=== PATIENT | male | born 1965 | race Caucasian/White ===

== ENCOUNTER 2021-09-03 13:32 | Emergency (ER) | payer BC, SELFPAY ==
[2021-09-03 13:33] VITALS: BP 136/77; PULSE 108; RESP 18; TEMP 36.6; O2SAT 99; BMI 22.4
--- NOTE | 2021-09-03 13:50 | EDS_ITS ---
HPI History of Present Illness Chief Complaint: Lower Extremity Injury Informant: patient Narrative Narrative: 55-year-old male states that last he he woke with a discomfort in his left hamstring like he had strained it. Later he developed pain like a charley horse in his calf and developed leg swelling. This is persisted through the weekend. He notes that he just returned home from [place] about 3 weeks ago. No history of DVT or PE. No known trauma. PFSH PFSH Home Medications Multivitamin 1 tab PO DAILY 12/06/15 [History Last Taken 12/06/15] omega 3-dha 60 mg-epa 90 mg-fish oil 500 mg capsule, delayed release (Fish Oil) 500 mg PO DAILY 12/06/15 [History Last Taken 12/06/15] Allergy/AdvReac Type Severity Reaction Status Date / Time No Known Allergies Allergy Verified 12/06/15 12:07 Social History (Updated 09/03/21 @ 13:[address] Dani Medley, DO) Smoking Status: Current every day smoker tobacco type: pipe substance use type: does not use ROS ROS ED Constitutional Constitutional ED: Denies chills or weight loss Eyes Eyes: Denies change in vision or diplopia ENT ENT ED: Denies ear pain, rhinorrhea or sore throat Cardiovascular Cardiovascular: Denies chest pain, orthopnea, palpitations or racing heartbeat Respiratory/Chest Respiratory/Chest: Denies cough, dyspnea or orthopnea Gastrointestinal Gastrointestinal: Denies abdominal pain, diarrhea, nausea or vomiting Genitourinary Genitourinary ED: Denies dysuria, hematuria or urinary frequency Musculoskeletal Musculoskeletal: Reports other; Denies arthralgias or myalgias Integumentary Denies abscess or rash Neurologic Neurologic: Denies headache(s) or weakness Psychiatric Psychiatric: Denies anxiety, depression, suicidal ideation or suicidal thoughts Endocrine Endocrinology: Denies polydipsia, polyphagia or polyuria Allergic/Immunologic Allergic/Immunologic ED: Denies mouth swelling, tongue swelling or urticaria EXAM Physical Exam Const Vital Signs: 09/03/21 13:33 Temperature 97.8 F Temperature Source Temporal Pulse Rate 108 H Respiratory Rate 18 Blood Pressure 136/77 H Blood Pressure Mean 96 Pulse Ox 99 Oxygen Delivery Method Room Air Positive well nourished and well developed General Appearance ED: well developed HEENT Reports normocephalic, head/scalp atraumatic and moist mucous membranes Eyes PERRL and EOMs intact bilaterally Neck no lymphadenopathy, supple and no JVD Resp normal respiratory effort and clear to auscultation bilaterally Cardio regular rate, regular rhythm and no murmurs GI normal to inspection, nondistended, normoactive bowel sounds and non-tender Palpation: soft Back/Spine no CVA tenderness and normal ROM Extremity Extremity Narrative: There is mild swelling of the left leg. Tenderness to palpation of the calf. There is some fullness in the popliteal fossa. No palpable cords. Neuro oriented x3 and CN's II-XII intact bilaterally Sensorium / Orientation: alert Motor Exam: strength 5/5 throughout Psych mental status grossly normal Mood & Affect: Negative for depressed or tearful Skin no rashes or lesions noted and no wounds MDM MDM MDM Narrative Medical decision making narrative: Duplex ultrasound is positive for DVT located in the distal femoral vein inferiorly. He will be placed on Eliquis. He is not having any chest pain or shortness of breath at this time. We talked about risk benefits of anticoagulation as well as follow-up. Patient notes understanding Discharge Plan Triage Chief Complaint: Lower Extremity Injury ED Provider: Dani Medley Dx/Rx/DC Orders Prescriptions: No Action Fish Oil 500 MG capsule,delayed release(DR/EC) 500 mg PO DAILY Multivitamin 1 tab PO DAILY Primary Care Provider: Care Physician,No Primary Referrals: Care Physician,No Primary [Primary Care Provider] -
--- NOTE | 2021-09-03 13:50 | VDLE_ITS ---
Reason For Study: Swelling RIGHT LEFT CFV is compressible, spontaneous, phasic, GSV is normal. competent and demonstrates normal CFV is compressible, spontaneous, phasic, augmentation. competent, and demonstrates normal Procedure augmentation. This is a venous duplex using B-mode, color FV prox-mid is compressible. flow and spectral Doppler. Acute deep vein thrombosis is noted in the Exam performed in department. left FV distal, PopV, T/P Trunk, PTV, PeroV, A preliminary report was called and/or faxed and [facility] to [facility]. VL/Venous Duplex US, Unilateral Interpretation Summary Acute deep venous thrombosis left distal femoral, popliteal, tibioperoneal trun k posterior tibial, peroneal, and soleus veins. Patent and compressible left great saphenous vein. Normal flow patterns right common femoral vein, Ordering Physician: Dani Medley Performed By: Chanelle Elliott RVT
[2021-09-03 14:37] VITALS: BP 153/88; RESP 18
== END 2021-09-03 14:38 | disposition home or self-care (01) ==
PROVIDERS: Emergency Provider Emergency Medicine; Visit Provider Emergency Medicine
DX: I82.412 Acute embolism and thrombosis of left femoral vein (principal); F17.290 Nicotine dependence, other tobacco product, uncomplicated
CPT/HCPCS: 93971; 99282

== ENCOUNTER 2022-05-03 14:25 | Emergency (ER) | payer BC, SELFPAY ==
[2022-05-03 14:27] VITALS: BP 127/100; PULSE 109; RESP 18; TEMP 36.6; O2SAT 99; BMI 21.7
[2022-05-03 15:56] LABS: Absolute Lymphocyte Count 1.31 X10^3/uL (0.83-4.51); Absolute Neutrophil Count 14.4 X10^3/uL (2.0-7.7); Basophil# 0.05 X10^3/uL; Basophil% 0.3 % (0-1); Eosinophil# 0.12 X10^3/uL; Eosinophils% 0.6 % (0-5); Hematocrit 42.4 % (40-54); Hemoglobin 14.2 g/dL (13.0-16.5); Lymphocyte # 1.31 X10^3/ul (0.83-4.51); Lymphocyte % 7.1 % (19-41); Mean Corp Hgb Conc 33.5 g/dL (32-36); Mean Corpuscular Hgb 31.1 pg (27.0-32.0); Mean Platelet Vol. 9.2 fl (6.2-12.0); Monocyte# 2.55 X10^3/uL; Monocyte% 13.8 % (0-10); NRBC Flagged by Analyzer 0 % (0-5); Neutrophil % 77.6 % (47-70); POSITIVE COUNT YES; POSITIVE DIFFERENTIAL YES; Platelet Count 350 K/mm3 (150-450); RBC Distribution Width CV 12.7 % (11.6-14.6); RBC Distribution Width SD 43.6 fl (35.1-43.9); Red Blood Count 4.56 M/mm3 (4.6-6.2); White Blood Count 18.5 K/mm3 (4.4-11.0)
[2022-05-03 15:58] LABS: Differential Indicated SCAN CRITERIA MET
[2022-05-03 16:04] LABS: Anion Gap 7 (5-15); BUN 10 mg/dL (7-18); Calcium,Total 9.8 mg/dL (8.5-10.1); Chloride 101 mmol/L (98-107); EST Glomerular Filtration Rate 81 mL/min (>60); Est Glom Filt Rate - Afr Amer 99 mL/min (>60); Estimated Creatinine Clearance 87.69 ml/min; Glucose 103 mg/dL (74-106); Potassium 4.9 mmol/L (3.5-5.1); Sodium Level 133 mmol/L (136-145)
[2022-05-03 16:26] VITALS: PULSE 95; RESP 15; O2SAT 99
[2022-05-03 16:29] LABS: Differential Comment SCANNED
--- NOTE | 2022-05-03 16:44 | CT_ITS ---
We are attempting to reach an attending provider to discuss findings. An addendum with communication details will be sent when the communication is complete. STUDY: CT ABDOMEN AND PELVIS WITH CONTRAST REASON FOR EXAM: Male, 56 years old. RLQ pain RADIATION DOSAGE (If Supplied By Facility): CTDIvol = ( 10.53 ) mGy, DLP = ( 564.84 ) mGycm TECHNIQUE: Transaxial images were obtained from the dome of the diaphragm to the symphysis pubis without oral contrast. IV 100mL Isovue-300 was administered. Sagittal and coronal images were reconstructed. Individualized dose optimization techniques were used for this CT. COMPARISON: None. FINDINGS: The visualized lung bases are unremarkable. The visualized portions of the heart are within normal limits. Nonspecific fatty infiltrated liver without mass or bile duct dilatation. Normal gallbladder and extrahepatic biliary system. Normal spleen. Normal pancreas. Normal bilateral adrenal glands. Normal right kidney. Normal left kidney. Normal visualized stomach. There is thickening of the nance of the terminal ileum and multiple adjacent loops of ileum with stranding in the fat as well as mild thickening of the nance of the cecum and proximal ascending colon consistent with inflammatory changes possibly due to Crohn''s disease. There are also small pericecal nodes Diverticular disease of the sigmoid colon focal segmental wall thickening and narrowing of the lumen but no associated stranding in the fat possibly due to chronic disease. Neoplasm is less likely but not entirely excluded.. The appendix is not clearly visualized however there is no definitive evidence for acute appendicitis. Atherosclerotic changes of the aorta without evidence for aneurysm. Normal inferior vena cava. Normal retroperitoneum. Incompletely distended thick walled bladder of uncertain significance. Mild nonspecific prominence of the prostate Normal abdominal wall. Chronic wedging of superior endplate of L1. CT/Abdomen/Pelvis W IV Cont ONLY IMPRESSION: Findings which may be consistent with nonspecific ileocolitis possibly due to Crohn''s disease. Normal appendix is not clearly visualized however no definitive evidence for acute appendicitis Electronically Signed: Anand Andrade MD at 17:45 EST ,
--- NOTE | 2022-05-03 16:44 | EDS_ITS ---
HPI History of Present Illness Chief Complaint: Abd Pain Informant: patient Onset/Context/Timing Onset: Days (8 days) Context: Gradual Onset Current Severity: Moderate Maximum Severity: Moderate Narrative Narrative: Patient presents with a 1 week history of right lower quad abdominal pain. He states last Friday he noted pain in the right lower quadrant. Over the next 4 to 5 days he had crampy abdominal pain similar to what he would get if he had food poisoning. He states he took some prune juice to help with some mild constipation. He has not noted any fever. He states his abdomen was quite bloated for several days. The bloating seems to be improved but he continues to have pain in the right lower quadrant. Patient states he has not eaten anything since the . He has been drinking room temperature water over the past 2 days. He states he has been avoiding food because it causes increased pain and he just has not been hungry. [facility] Medical History (Updated 05/03/22 @ 19:[address] Amie Gonzáles MD) DVT (deep venous thrombosis) Home Medications Multivitamin 1 tab PO DAILY 12/06/15 [History Last Taken 12/06/15] omega 3-dha 60 mg-epa 90 mg-fish oil 500 mg capsule, delayed release (Fish Oil) 500 mg PO DAILY 12/06/15 [History Last Taken 12/06/15] apixaban 5 mg tablet (Eliquis) 5 mg PO BID #74 tabs 09/03/21 [Rx Last Taken Unknown] hydrocodone-acetaminophen 5-325mg 5mg-325mg 1 tab PO Q6H PRN PRN Pain 3 days #12 TABLETS 09/03/21 [Rx Last Taken Unknown] ciprofloxacin HCl 500 mg tablet (Cipro) 500 mg PO BID #20 tabs 05/03/22 [Rx Last Taken Unknown] dicyclomine 10 mg capsule 20 mg PO BID PRN abdominal cramping #20 caps 05/03/22 [Rx Last Taken Unknown] metronidazole 500 mg tablet 500 mg PO Q8H 14 days #42 tabs 05/03/22 [Rx Last Taken Unknown] prednisone 10 mg tablet 10 mg PO DAILY #63 tabs 05/03/22 [Rx Last Taken Unknown] Allergy/AdvReac Type Severity Reaction Status Date / Time No Known Allergies Allergy Verified 05/03/22 14:27 Social History Smoking Status: Current every day smoker tobacco type: pipe substance use type: does not use ROS ROS ED Constitutional Constitutional ED: Denies chills or fever(s) Eyes Eyes: Denies change in vision or discharge from eye(s) ENT ENT ED: Denies discharge from eye(s), rhinorrhea or sore throat Cardiovascular Cardiovascular: Denies chest pain or palpitations Respiratory/Chest Respiratory/Chest: Denies cough or dyspnea Gastrointestinal Gastrointestinal: Reports abdominal pain; Denies diarrhea, nausea or vomiting Genitourinary Genitourinary ED: Denies dysuria Musculoskeletal Musculoskeletal: Denies back pain or extremity pain Integumentary Denies Abrasions or rash Neurologic Neurologic: Denies headache(s) or weakness Psychiatric Psychiatric: Denies anxiety or depression Allergic/Immunologic Allergic/Immunologic ED: Denies lip swelling or urticaria EXAM Physical Exam Const Vital Signs: 05/03/22 14:27 05/03/22 16:26 Temperature 98 F Temperature Source Temporal Pulse Rate 109 H 95 Respiratory Rate 18 15 Blood Pressure 127/100 H Blood Pressure Mean 109 Pulse Ox 99 99 Oxygen Delivery Method Room Air Room Air Positive well nourished and well developed General Appearance ED: well developed HEENT Reports normocephalic and head/scalp atraumatic Eyes PERRL and EOMs intact bilaterally Neck supple Chest Wall inspection of chest normal and palpation of chest normal Resp normal respiratory effort and clear to auscultation bilaterally Cardio regular rate and regular rhythm GI GI Narrative: Hypoactive bowel sounds noted. Moderate tenderness in the right lower quadrant. Voluntary guarding noted. Palpation: soft Extremity normal to inspection Neuro oriented x3 and no sensory deficits noted Sensorium / Orientation: alert Motor Exam: strength 5/5 throughout Psych mental status grossly normal Skin no rashes or lesions noted MDM MDM MDM Narrative Medical decision making narrative: Lab work was obtained per nursing protocol to evaluate for leukocytosis and electrolyte derangement. White count is noted to be elevated at 18.5 with 77% neutrophils. At the time of my exam patient is ordered IV fluids along with morphine and Zofran for pain and nausea. CT scan of the abdomen and pelvis with IV contrast is obtained to evaluate for appendicitis. Lab Data Attestation: I reviewed the patient's lab results. Labs: Laboratory Results - last 24 hr 05/03/22 05/03/22 15:23 15:23 WBC 18.5 H RBC 4.56 L Hgb 14.2 Hct 42.4 MCV 93.0 MCH 31.1 MCHC 33.5 RDW Std Deviation 43.6 RDW Coeff of Lele 12.7 Plt Count 350 MPV 9.2 Immature Gran % (Auto) 0.600 Neut % (Auto) 77.6 H Lymph % (Auto) 7.1 L Powell % (Auto) 13.8 H Eos % (Auto) 0.6 Baso % (Auto) 0.3 Absolute Neuts (auto) 14.4 H Absolute Lymphs (auto) 1.31 Nucleated RBC % 0 Differential Comment SCANNED Diff Path Review May foll Sodium 133 L Potassium 4.9 Chloride 101 Carbon Dioxide 25.0 Anion Gap 7 BUN 10 Creatinine 1.00 Estim Creat Clear Calc 87.69 Est GFR (MDRD) Af Amer 99 Est GFR (MDRD) Non-Af 81 BUN/Creatinine Ratio 10.0 Glucose 103 Calcium 9.8 Radiography Diagnostic Testing: Clinical Impression(s) from Imaging Studies Abdomen/Pelvis CT 05/03/22 16:44 IMPRESSION: Findings which may be consistent with nonspecific ileocolitis possibly due to Crohn''s disease. Normal appendix is not clearly visualized however no definitive evidence for acute appendicitis Electronically Signed: Anand Andrade MD at 17:45 EST , ADDENDUM: 05/03/22 1819 IMPRESSION: Findings which may be consistent with nonspecific ileocolitis possibly due to Crohn''s disease. Normal appendix is not clearly visualized however no definitive evidence for acute appendicitis N.B. : The above Results were Read Back by Anand Andrade MD to Amie Gonzáles MD, and understanding confirmed on 05/03/2022 18:12:59 (ET). Electronically Signed: Anand Andrade MD at 17:45 EST , Treatment and Re-Evaluation Narrative: CBC reveals an elevated white count at 18.5 with 77% neutrophils. Chemistry studies are unremarkable. CT scan of the abdomen and pelvis reveals evidence of nonspecific ileocolitis, possibly Crohn's disease. Normal appendix is not ortiz bob visualized however there is no definitive evidence of appendicitis. Test results discussed with Dr. Rai, on-call for GI. He reviewed the patient's imaging. He asked the patient to be given Cipro and Flagyl for 14 days along with a steroid taper. I also did have surgery evaluate the imaging to ensure they did not appreciate any sign of appendicitis. Test results are discussed with the patient he is comfortable the plan. He is given prescription for Cipro, Flagyl, prednisone, and Bentyl. He is to follow-up with Dr. Rai's office in the next couple weeks. Discharge Plan Triage Chief Complaint: Abd Pain ED Provider: Amie Gonzáles Dx/Rx/DC Orders Clinical Impression: Crohn's ileocolitis Instructions: ED Crohn's Disease Prescriptions: New ciprofloxacin HCl [Cipro] 500 mg tablet 500 mg PO BID Qty: 20 0RF metronidazole 500 mg tablet 500 mg PO Q8H 14 Days Qty: 42 0RF prednisone 10 mg tablet 10 mg PO DAILY Qty: 63 0RF Rx Instructions: 60 mg p.o. daily ?3 days, 50 mg p.o. daily ?3 days, 40 mg p.o. daily ?3 days, 30 mg p.o. daily ?3 days, 20 mg p.o. daily ?3 days, 10 mg p.o. daily ?3 days. dicyclomine 10 mg capsule 20 mg PO BID PRN (Reason: abdominal cramping) Qty: 20 0RF No Action Fish Oil 500 MG capsule,delayed release(DR/EC) 500 mg PO DAILY Multivitamin 1 tab PO DAILY Eliquis 5 mg tablet 5 mg PO BID Qty: 74 0RF Rx Instructions: 10 mg twice a day for the first week. Then 5 mg twice a day. hydrocodone-acetaminophen [hydrocodone-acetaminophen] 5-325 mg tablet 1 tab PO Q6H PRN PRN (Reason: Pain) 3 Days Qty: 12 0RF Primary Care Provider: Care Physician,No Primary Referrals: Rudy Rai DO [Med Staff - Active Staff] - 1-2 Weeks Care Physician,No Primary [Primary Care Provider] - Disposition Disposition: Home, Self Care Discharge Date/Time: 05/03/22 20:11
[2022-05-03] MEDS: Ondansetron 4 MG/2 ML Vial IV (16:54)
[2022-05-03] MEDS: 0.9% Normal Saline 1,000 ML 150 ML IV (16:55)
[2022-05-03] MEDS: Morphine 4 MG/ML Syringe IV (16:57)
[2022-05-03] MEDS: Ciprofloxacin 500 MG Tablet PO (20:02)
[2022-05-03] MEDS: metroNIDAZOLE 500 MG Tablet PO (20:03)
[2022-05-03] MEDS: Dicyclomine 10 MG Capsule 20 MG PO (20:03)
[2022-05-03] MEDS: predniSONE 20 MG Tablet 60 MG PO (20:09)
--- NOTE | 2022-05-05 15:28 | ED.RN ---
PT CALLS INTO ED REPORTS THAT HIS PRESCRIPTION FOR PREDNISONE DID NOT GO THROUGH TO THE [facility] IN [place] AND THAT HE NEEDS IT RESUBMITTED. THIS RN SPOKE WITH DR. DOWNEY WHO REVIEWED THE CASE AND GIVE VERBAL ORDERS FOR PRESCRIPTION TO BE RESUBMITTED. THIS RN CALLED IN PRESCRIPTION TO [facility] IN [place]. THIS RN TRIED TO CONTACT PT IN REGARDS TO PRESCRIPTION BEING RESUBMITTED. PT DI NOT ANSWER THIS RN LEFT A VOICEMAIL WITH CALLBACK NUMBER.
[2022-05-06 13:19] LABS: Pathologist Review Reviewed
== END 2022-05-03 20:11 | disposition home or self-care (01) ==
PROVIDERS: Emergency Provider Emergency Medicine; Visit Provider Emergency Medicine
DX: K52.9 Noninfective gastroenteritis and colitis, unspecified (principal); F17.290 Nicotine dependence, other tobacco product, uncomplicated; Z86.718 Personal history of other venous thrombosis and embolism
CPT/HCPCS: 74177; 80048; 85025; 96374; 96375; 99284; Q9967; A4216; J2405

== ENCOUNTER → 2022-05-10 | Outpatient (CLI) | payer BC, SELFPAY ==
[2022-05-10 15:28] LABS: Bacteria 0 SEEN /hpf (None Seen); Red Blood Cells-Urine 0 SEEN /hpf (0-5)
[2022-05-10 16:11] LABS: Absolute Lymphocyte Count 3.46 X10^3/uL (0.83-4.51); Absolute Neutrophil Count 9.7 X10^3/uL (2.0-7.7); Basophil# 0.05 X10^3/uL; Basophil% 0.3 % (0-1); Eosinophil# 0.19 X10^3/uL; Eosinophils% 1.2 % (0-5); Hematocrit 40.6 % (40-54); Hemoglobin 13.5 g/dL (13.0-16.5); Lymphocyte # 3.46 X10^3/ul (0.83-4.51); Lymphocyte % 21.7 % (19-41); Mean Corp Hgb Conc 33.3 g/dL (32-36); Mean Corpuscular Hgb 31.2 pg (27.0-32.0); Mean Corpuscular Volume 93.8 fL (80-94); Mean Platelet Vol. 8.6 fl (6.2-12.0); Monocyte# 2.12 X10^3/uL; Monocyte% 13.3 % (0-10); NRBC Flagged by Analyzer 0 % (0-5); Neutrophil % 60.7 % (47-70); POSITIVE DIFFERENTIAL YES; Platelet Count 617 K/mm3 (150-450); RBC Distribution Width CV 13.2 % (11.6-14.6); RBC Distribution Width SD 45.4 fl (35.1-43.9); Red Blood Count 4.33 M/mm3 (4.6-6.2)
[2022-05-10 16:15] LABS: Differential Indicated SCAN CRITERIA MET
[2022-05-10 16:24] LABS: Color, Urine Amber (Yellow); Glucose, Dipstick Normal (Normal); Ketone-Dipstick 5 mg/dl (Negative); Leukocyte Esterase-Dipstick 100 /ul (Negative); Nitrite-Dipstick Negative (Negative); Occult Blood-Urine 10 /ul (Negative); Protein-Dipstick 30 mg/dl (Negative); Urine Bilirubin Dipstick Negative (Negative); Urine Clarity Clear (Clear); Urine Urobilinogen 1 mg/dl (Normal)
[2022-05-10 16:25] LABS: Erythrocyte Sedimentation Rate 27 mm/hr (0-20)
[2022-05-10 16:49] LABS: ALB/GLOB Ratio 0.7 RATIO (0.9-2.4); AST(SGOT) 25 U/L (15-37); Alanine Aminotransfer ALT/SGPT 44 U/L (16-61); Alkaline Phosphatase 79 U/L (45-117); Anion Gap 4 (5-15); BUN 10 mg/dL (7-18); Calcium,Total 9.2 mg/dL (8.5-10.1); Chloride 106 mmol/L (98-107); EST Glomerular Filtration Rate 82 mL/min (>60); Est Glom Filt Rate - Afr Amer 99 mL/min (>60); Globulin 4.3 g/dL (2.2-4.2); Glucose 121 mg/dL (74-106); LDH 139 U/L (87-241); Potassium 3.4 mmol/L (3.5-5.1); Protein, Total 7.3 g/dL (6.4-8.2); Sodium Level 137 mmol/L (136-145)
[2022-05-10 19:47] LABS: Hyaline Cast 0-5 SEEN /lpf (0-5); Mucous, Urine 3+ /hpf (<or=2+)
[2022-05-10 19:48] LABS: Calcium Oxalate Crystals Ur 2+ /hpf (<or=2+); Squamous Epithelial Cells - UA 0-5 SEEN /hpf (0-5); White Blood Cells 0-5 SEEN /hpf (0-5)
[2022-05-13 13:07] LABS: Anti-Centromere B Ab <0.2 AI (0.0-0.9); Anti-Chromatin <0.2 AI (0.0-0.9); Anti-Jo <0.2 AI (0.0-0.9); Anti-Scleroderma-70 AB <0.2 AI (0.0-0.9); RNP Ab <0.2 AI (0.0-0.9); SJOGREN'S Anti-SS-A test < 0.2 AI (0.0-0.9); SJOGREN'S Anti-SS-B test < 0.2 AI (0.0-0.9); Smith Ab <0.2 AI (0.0-0.9)
[2022-05-13 13:18] LABS: Anti-dsDNA Ab <1 IU/mL (0-9)
[2022-05-13 14:06] LABS: Pathologist Review Reviewed
[2022-05-13 16:08] LABS: Endomysial Antibody IgA Negative (Negative)
[2022-05-13 21:03] LABS: Immunoglobulin A 469 mg/dL (90-386); t-Transglutaminase IgA 2 U/mL (0-3)
[2022-05-17 00:06] LABS: Albumin 3.2 g/dL (2.9-4.4); Alpha-1-Globulins 0.5 g/dL (0.0-0.4); Alpha-2-Globulins 0.9 g/dL (0.4-1.0); Cytoplasmic Ab (C-ANCA) 1:20 titer (Neg:<1:20); Gamma Globulin 1.3 g/dL (0.4-1.8); Immunoglobulin A 485 mg/dL (90-386); Immunoglobulin E 223 IU/mL (6-495); Immunoglobulin G 1059 mg/dL (603-1613); Immunoglobulin M 91 mg/dL (20-172); PROEL- TOTAL PROTEIN 6.7 g/dL (6.0-8.5)
[2022-05-17 08:29] LABS: Perinuclear Ab (P-ANCA) <1:20 titer (Neg:<1:20)
== END | disposition home or self-care (01) ==
PROVIDERS: Visit Provider Nurse Practitioner Adult Health
DX: K52.9 Noninfective gastroenteritis and colitis, unspecified (principal); N32.89 Other specified disorders of bladder
CPT/HCPCS: 36415; 80053; 81001; 82784; 82785; 83516; 83615; 84165; 85025; 85652; 86140; 86225; 86235; 86255; 86256; 86334